=== PATIENT | female | born 1965 | race Caucasian/White ===

== ENCOUNTER 2021-01-15 21:34 | Emergency (ER) | payer MEDICAID ==
[~2021-01-15] VITALS: Ht 160 cm; Wt 52.2 kg
--- NOTE | 2021-01-15 22:14 | Emergency Room Report ---
History of Present Illness General Chief Complaint: Abdominal Pain Source: Patient, EMS Present Illness HPI This is a 55-year-old female with no past medical history. She presents with chief complaint abdominal pain. Onset was acute and occurred about 30 minutes prior to arrival. She was eating some lentil soup which developed abdominal pain and has persistent vomiting. Also complained of weakness and headache. No diarrhea. No fever chills. Nothing made it better. Any movement or palpation made it worse. Vomiting is nonbloody nonbilious. She also complaining of a headache. Onset of headache and vomiting occurred at the same time. Never had this problem before. Pain is 9 out of 10. Allergies: Coded Allergies: No Known Allergies (Unverified , 01/15/21) COVID-19 Screening Contact w/high risk pt: No Experienced COVID-19 symptoms?: Yes COVID-19 Testing performed [employer] TECHNICIAN: No Patient History Past Medical History: none, see triage record, old chart reviewed Past Surgical History: other Pertinent Family History: none Social History: Denies: smoking Now: No Immunizations: other Reviewed Nursing Documentation: PMH: Agreed; PSxH: Agreed Nursing Documentation-PMH Past Medical History: No Stated History Review of Systems Eye: Denies: eye pain, blurred vision ENT: Denies: ear pain, nose congestion, throat swelling Respiratory: Denies: cough, shortness of breath Cardiovascular: Denies: chest pain, palpitations Gastrointestinal: Reports: abdominal pain, nausea, vomiting; Denies: diarrhea Musculoskeletal: Denies: back pain, joint pain Skin: Denies: rash Neurological: Denies: headache, numbness Endocrine: Denies: increased thirst, increased urine Hematologic/Lymphatic: Denies: easy bruising All Other Systems: negative except mentioned in HPI Physical Exam Vital Signs Date Time Temp Pulse Resp B/P (MAP) Pulse Ox O2 Delivery O2 Flow Rate FiO2 01/15/21 21:38 98.4 81 15 170/87 (114) 99 Room Air Vitals with high blood pressure Sp02 EP Interpretation: reviewed, normal General Appearance: well appearing, no apparent distress, alert, thin Head: normocephalic, atraumatic Eyes: bilateral eye PERRL, bilateral eye EOMI ENT: hearing grossly normal, normal pharynx Neck: full range of motion, supple, no meningismus Respiratory: chest non-tender, lungs clear, normal breath sounds Cardiovascular #1: regular rate, rhythm, no murmur Gastrointestinal: normal bowel sounds, no mass, no organomegaly, no bruit, non- distended, tenderness - Lower quadrants, mostly right side. Musculoskeletal: back normal, normal range of motion, gait/station normal Psychiatric: mood/affect normal Procedures Critical Care Time Critical Care Time Critical care is mandated in this patient who presented with acute onset of headache with nausea vomiting and abdominal pain. Patient require my urgent intervention to attenuate the risks of neurologic collapse which may lead to cardiovascular collapse and . Critical care time is 35 minutes excluding any reportable procedure. Critical care time included evaluation, multiple reevaluation, looking at old charts, interpreting laboratory and diagnostic data, discussing case with patient and family and consultants, and charting. Medical Decision Making Diagnostic Impression: Primary Impression: Subarachnoid (nontraumatic) hemorrhage of Additional Impression: Abdominal pain Qualified Codes: R10.84 - Generalized abdominal pain ER Course Patient presents with headache, abdominal pain with nausea and vomiting. Initially she complaining of abdominal pain with nausea and vomiting. Abdominal work-up was negative. Because of her persistent headache, I ordered a CT head. CT head showed large amount of subarachnoid bleed. Most likely from aneurysmal bleed. Patient is he medically stable. Blood pressure is in the normal range. Heart rate is neck is normal. I order Keppra for her. At this moment in time, she does not need to be intubated. I discussed the case with Dr. Little, neurosurgeon at [facility]. He accepted her for transfer for higher level of care. CT/MRI/US Diagnostic Results CT/MRI/US Diagnostic Results #1: Impression Read by radiologist. No appendicitis. Mildly increased stool burden. Fluid- filled small bowel. CT/MRI/US Diagnostic Results #2: Imaging Test Ordered: CT head Impression Read by radiologist. Large amount of subarachnoid hemorrhage within the basilar cistern and extending to the bilateral hemisphere. No herniation. Last Vital Signs Date Time Temp Pulse Resp B/P (MAP) Pulse Ox O2 Delivery O2 Flow Rate FiO2 01/15/21 21:38 98.4 81 15 170/87 (114) 99 Room Air Status: unchanged Disposition: SHORT-TERM HOSP Condition: Critical Scripts No Active Prescriptions or Reported Meds Dwight Cruz MD Jan 15, 2021 22:14
[2021-01-15] MEDS ORDERED: Ketorolac 30mg Inj IV ONE (22:15)
[2021-01-15] MEDS ORDERED: Omnipaque-300 100ml vial INJ PRN (22:15)
--- NOTE | 2021-01-15 22:30 | NUR ---
ED Nurse Note: patient brought in via EMS complaints of abdominal pain and vomitting no other health history
--- NOTE | 2021-01-15 22:30 | NUR ---
ED Nurse Note: Blood and urine specimen collected and sent to lab
--- NOTE | 2021-01-15 22:30 | NUR ---
ED Nurse Note: vitals stable patient ambulatory with assistance
[2021-01-15 22:51] LABS: APPEARANCE,URINE CLEAR; BILIRUBIN, URINE NEGATIVE (NEGATIVE); COLOR,URINE PALE YELLOW; GLUCOSE, URINE (UA) 1+ (NEGATIVE); KETONES,URINE NEGATIVE (NEGATIVE); LEUKOCYTE ESTERASE ,URINE NEGATIVE (NEGATIVE); NITRITE,URINE NEGATIVE (NEGATIVE); PH,URINE 8 (4.5-8.0); PROTEIN,URINE NEGATIVE (NEGATIVE); UROBILINOGEN,URINE NORMAL MG/DL (0.0-1.0)
[2021-01-15 22:54] LABS: BASOPHILS % (AUTO) 0.7 % (0.0-2.0); EOSINOPHILS % (AUTO) 0.4 % (0.0-3.0); HEMATOCRIT 39.8 % (37.0-47.0); HEMOGLOBIN 13.3 G/DL (12.0-16.0); LYMPHOCYTES % (AUTO) 12.6 % (20.0-45.0); MEAN CORPUSCULAR VOLUME 90 FL (80-99); MONOCYTES % (AUTO) 4.1 % (1.0-10.0); NEUTROPHILS % (AUTO) 82.3 % (45.0-75.0); PLATELET COUNT 145 K/UL (150-450); RED BLOOD COUNT 4.42 M/UL (4.20-5.40); RED CELL DISTRIBUTION WIDTH 13.5 % (11.6-14.8); WHITE BLOOD COUNT 11.3 K/UL (4.8-10.8)
[2021-01-15 23:03] VITALS: BP 138/68
[2021-01-15 23:05] LABS: ANION GAP 10 mmol/L (5-15); BLOOD UREA NITROGEN 15 mg/dL (7-18); CALCIUM 8.9 MG/DL (8.5-10.1); CARBON DIOXIDE 28 MMOL/L (21-32); CHLORIDE 103 MMOL/L (98-107); CREATININE 0.6 MG/DL (0.55-1.30); POTASSIUM 3.4 MMOL/L (3.5-5.1); SODIUM 141 MMOL/L (136-145)
[2021-01-15 23:09] LABS: ALANINE AMINOTRANSFERASE 20 U/L (12-78); ALBUMIN 3.7 G/DL (3.4-5.0); ALKALINE PHOSPHATASE 80 U/L (46-116); ASPARTATE AMINO TRANSFERASE 21 U/L (15-37); BILIRUBIN,TOTAL 0.5 MG/DL (0.2-1.0)
--- NOTE | 2021-01-15 23:12 | NUR ---
Pt to CT
--- NOTE | 2021-01-15 23:30 | NUR ---
ED Nurse Note: Pt returned from CT
--- NOTE | 2021-01-15 23:38 | Diagnostic Imaging Report ---
EXAM: CT Abdomen and Pelvis With Intravenous Contrast CLINICAL HISTORY: ABD PAIN TECHNIQUE: Axial computed tomography images of the abdomen and pelvis with intravenous contrast. CTDI is 5 mGy and DLP is 245.8 mGy-cm. One or more of the following dose reduction techniques were used: automated exposure control, adjustment of the mA and/or kV according to patient size, use of iterative reconstruction technique. COMPARISON: No relevant prior studies available. FINDINGS: ABDOMEN: Liver: Unremarkable. Gallbladder and bile ducts: Unremarkable. Pancreas: Unremarkable. Spleen: Unremarkable. Adrenals: Unremarkable. Kidneys and ureters: Unremarkable. No obstructing stones. No hydronephrosis. Stomach and bowel: Mildly increased stool burden in the colon. No bowel obstruction. Fluid-filled small bowel with mild fecalization suggestive of stasis. PELVIS: Appendix: No findings to suggest acute appendicitis. Bladder: Unremarkable. Reproductive: Unremarkable as visualized. ABDOMEN and PELVIS: Intraperitoneal space: Unremarkable. No free air. No significant fluid collection. Bones/joints: No acute fracture. Soft tissues: Unremarkable. Vasculature: Unremarkable. Lymph nodes: Unremarkable. IMPRESSION: 1. Mildly increased stool burden in the colon. Correlate for constipation. 2. Fluid-filled small bowel with mild fecalization suggestive of decreased motility.
[2021-01-16] MEDS ORDERED: Metoclopramide 10mg/2ml Inj IVP ONE
--- NOTE | 2021-01-16 00:30 | NUR ---
ED Nurse Note: Pt to CT
--- NOTE | 2021-01-16 00:40 | NUR ---
ED Nurse Note: Pt return from CT
--- NOTE | 2021-01-16 00:51 | Diagnostic Imaging Report ---
EXAM: CT Head Without Intravenous Contrast CLINICAL HISTORY: PAIN TECHNIQUE: Axial computed tomography images of the head/brain without intravenous contrast. CTDI is 53.40 mGy and DLP is 1045.50 mGy-cm. One or more of the following dose reduction techniques were used: automated exposure control, adjustment of the mA and/or kV according to patient size, use of iterative reconstruction technique. COMPARISON: No relevant prior studies available. FINDINGS: Brain: Large amount of subarachnoid hemorrhage within the basilar cisterns and extending into the bilateral hemispheres. There is diffuse sulcal effacement. No herniation. Ventricles: Unremarkable. Bones/joints: Unremarkable. No fracture. Soft tissues: Unremarkable. Sinuses: Unremarkable as visualized. Mastoid air cells: Unremarkable as visualized. IMPRESSION: 1. Large amount of subarachnoid hemorrhage within the basilar cisterns and extending into the bilateral hemispheres. There is diffuse sulcal effacement. No herniation. <MYCVCSECTION> Communications: 01/16/21 00:53 Call Doctor Regarding Intracranial Hemorrhage, called Dr. Cruz on 01/16 00:53 (-08:00)
[2021-01-16] MEDS ORDERED: levETIRAcetam 1,000mg/NS100ml 100 ML IVPB ONE (01:00)
--- NOTE | 2021-01-16 01:04 | NUR ---
ED Nurse Note: Face sheet and CT report faxed to [facility], Confirmed with [facility]-they received them.
[2021-01-16 01:10] VITALS: BP 128/71
--- NOTE | 2021-01-16 01:40 | NUR ---
TRANSFER TO FLOOR: Patient transferred to [facility] as ordered, per MD . Report given to Tiffanie. Belongings taken with patient
--- NOTE | 2021-01-16 01:50 | NUR ---
ED Nurse Note: gave report to Tiffanie at [facility]
== END 2021-01-16 01:40 | disposition short-term general hospital (02) ==
LOC: EDBD 21:34 → EMR 22:10
DX: I60.8 Other nontraumatic subarachnoid hemorrhage (principal); R10.84 Generalized abdominal pain
CPT/HCPCS: 36415; 70450; 74177; 80053; 81003; 83690; 85025; 96361; 96365; 96375; J1885; J1953; J2405; J2765; J7030; Q9965; S0028; Z7502; 99291